=== PATIENT | female | born 1980 | race Caucasian/White ===

== ENCOUNTER 2018-04-08 14:31 | Emergency (ER) | payer OTHER ==
[2018-04-08 14:59] VITALS: BP 130/67
--- NOTE | 2018-04-08 15:45 | UC ---
Respiratory Complaint HPI - HPI Summary HPI Summary: Per mailroom clerk "c/o migraine and cough x 1.5 weeks. Right sided rib pain x 3 days from coughing so much." + asthma hx. ran out of alb. normally well controlled except for when she is sick. rt anterior low rib hurt. + wheezing. feels hot/cold. did not check temp. has had sinus pain but not today. has had to use prednsone for similar sx in past and had no problems. - History of Current Complaint Chief Complaint: UCRespiratory Stated Complaint: COLD SX'S, RT SIDED RIB PAIN Time Seen by Provider: 04/08/18 15:38 Hx Last Menstrual Period: perimenopausal Pain Intensity: 10 - Allergies/Home Medications Allergies/Adverse Reactions: Allergies Allergy/AdvReac Type Severity Reaction Status Date / Time morphine Allergy See Comment Verified 02/15/18 11:44 ibuprofen AdvReac See Comment Verified 02/15/18 11:44 PMH/Surg Hx/FS Hx/Imm Hx Previously Healthy: Yes - Surgical History Surgical History: Yes Surgery Procedure, Year, and Place: t/a as a child. x 2. GASTRIC BYPASS-"SLEEVE" DEC 2013. LT KNEE - ACL RECON. ABDOMINOPLASTY - Family History Known Family History: Positive: Hypertension, Other - negative FMH migraines - Social History Alcohol Use: None Substance Use Type: None Smoking Status (MU): Heavy Every Day Tobacco Smoker Type: Cigarettes Amount Used/How Often: 1/2 PPD Length of Time of Smoking/Using Tobacco: 8 YRS Have You Smoked in the Last Year: Yes When Did the Patient Quit Smoking/Using Tobacco: 2009 Household Exposure Type: Cigarettes Review of Systems Constitutional: Chills Skin: Negative Eyes: Negative ENT: Negative Respiratory: Cough Cardiovascular: Negative Gastrointestinal: Negative Genitourinary: Negative Motor: Negative Neurovascular: Negative Musculoskeletal: Negative Neurological: Negative Psychological: Negative Is Patient Immunocompromised?: No All Other Systems Reviewed And Are Negative: Yes Physical Exam Triage Information Reviewed: Yes Appearance: Ill-Appearing - mildly d/t cough. Vital Signs: Initial Vital Signs Temp 97.4 F 04/08/18 14:53 Pulse 68 04/08/18 14:53 Resp 18 04/08/18 14:53 BP 130/67 04/08/18 14:53 Pulse Ox 99 04/08/18 14:53 Vital Signs Reviewed: Yes Eye Exam: Normal ENT: Positive: Pharynx normal, Nasal congestion, TMs normal. Negative: Sinus tenderness Dental Exam: Normal Neck exam: Normal Neck: Positive: Supple, Nontender, No Lymphadenopathy Respiratory: Positive: No respiratory distress, No accessory muscle use, Wheezing - througout, Other: - tender over rt ribs anterior inframammary area. Negative: Crackles Cardiovascular Exam: Normal Cardiovascular: Positive: RRR, No Murmur, Pulses Normal Abdomen Description: Positive: Nontender, Soft Musculoskeletal Exam: Normal Neurological Exam: Normal Psychological Exam: Normal Skin Exam: Normal UC Diagnostic Evaluation - Laboratory O2 Sat by Pulse Oximetry: 99 Respiratory Course/Dx - Course Course Of Treatment: Rt rib xray & chest x 3 viwes - no pneumonia, no frx. reviewed w/ pt. alb neb given here x1. sx improved. lungs w/ better air movement and only minimal wheezing. - Differential Dx/Diagnosis Differential Diagnosis/HQI/PQRI: Asthma, Lower Resp Infection, Sinusitis, Other - rib frx Provider Diagnoses: asthmatic bronchitis, chest wall strain Discharge - Sign-Out/Discharge Documenting (check all that apply): Discharge/Admit/Transfer - Discharge Plan Condition: Stable Disposition: HOME Prescriptions: Albuterol HFA INHALER* [Ventolin HFA Inhaler*] 2 puff INH Q4H PRN 30 Days #1 mdi PRN Reason: Cough Amoxicillin/Clavulanate TAB* [Augmentin TAB 875*] 875 mg PO BID #20 tab methylPREDNISolone [Medrol Dosepak 4 MG*] 4 mg PO DAILY #1 rica Patient Education Materials: Asthma (ED), Acute Bronchitis (ED) Referrals: Lj Christianson PA [Primary Care Provider] - 5 Days Additional Instructions: -Make sure to take a probiotic daily while on antibiotics to help prevent a potential complication of antibiotic use called c diff. Some well known brands that can be found OTC are [employer], [facility] and [employer]. Make sure to complete the entire prescription unless advised otherwise by your health care provider -Use the albuterol inhaler every 4-6 hours as needed. You should follow up sooner if your symptoms increase or persist. -The xray did not show any pneumonia or rib fracture. - Billing Disposition and Condition Condition: STABLE Disposition: HOME
[2018-04-08] MEDS ORDERED: Albuterol 2.5 MG/3 ML NEB.SOL* (0.083%) INH ONE (15:52)
--- NOTE | 2018-04-08 17:08 | RAD ---
INDICATION: Cough rhonchi wheezing, anterior right rib pain. COMPARISON: Comparison is made with a prior chest x-ray study from January 02, 2011. TECHNIQUE: 3 views of the right ribs and dual-energy PA views of the chest were obtained. FINDINGS: No fracture or significant focal osseous abnormality is seen. The heart is within normal limits in size. The lungs are clear. There is no evidence for pneumothorax or pleural effusion. IMPRESSION: NO EVIDENCE FOR ACUTE FINDING.
== END 2018-04-08 17:25 | disposition home or self-care (01) ==
LOC: UCCORT 14:31
DX: J45.909 Unspecified asthma, uncomplicated (principal); S29.011A Strain of muscle and tendon of front wall of thorax, initial encounter; X58.XXXA Exposure to other specified factors, initial encounter; Y92.9 Unspecified place or not applicable; Z88.6 Allergy status to analgesic agent
CPT/HCPCS: 99212; G0463

== ENCOUNTER 2018-06-17 16:10 | Emergency (ER) | payer OTHER ==
[2018-06-17 16:39] VITALS: BP 100/67
--- NOTE | 2018-06-17 17:07 | UC ---
Headache HPI - HPI Summary HPI Summary: per director of marketing operations "Pt c/o migraines, nausea, vomitting/diarrhea, and vertigo x4 days. Takes topamax daily for migraines and tylenol prn-last taken 1100 today w / no pain relief. Deneis syncopal episode. States she still feels dizzy w/ eyes closed. Unable to keep fluids down d/t nausea-last emesis about an hour ago. " -here w. her boyfriend. -gets terrible migraines every few months that require toradol. requetss the same. she does get h/o vertigo w/ these sx. denies slurred speech, numbing, weakness, tingling. zofran helps. denies renal problems. - History Of Current Complaint Chief Complaint: UCHeadache Stated Complaint: HEADACHE, VOMITING Time Seen by Provider: 06/17/18 16:58 Hx Last Menstrual Period: DOES NOT GET; "PRE-MENOPAUSE" Pain Intensity: 10 - Allergies/Home Medications Allergies/Adverse Reactions: Allergies Allergy/AdvReac Type Severity Reaction Status Date / Time morphine Allergy See Comment Verified 06/17/18 16:29 ibuprofen AdvReac See Comment Verified 06/17/18 16:29 PMH/Surg Hx/FS Hx/Imm Hx Previously Healthy: Yes Neurological History: Migraine - Surgical History Surgical History: Yes Surgery Procedure, Year, and Place: t/a as a child. x 2. GASTRIC BYPASS-"SLEEVE" DEC 2013. LT KNEE - ACL RECON. ABDOMINOPLASTY - Family History Known Family History: Positive: Hypertension, Other - negative FMH migraines - Social History Alcohol Use: None Substance Use Type: None Smoking Status (MU): Heavy Every Day Tobacco Smoker Type: Cigarettes Amount Used/How Often: 1/2 PPD Length of Time of Smoking/Using Tobacco: 8 YRS Have You Smoked in the Last Year: Yes When Did the Patient Quit Smoking/Using Tobacco: 2009 Household Exposure Type: Cigarettes - Immunization History Most Recent Tetanus Shot: UTD Review of Systems Constitutional: Negative Skin: Negative Eyes: Negative ENT: Negative Respiratory: Negative Cardiovascular: Negative Gastrointestinal: Vomiting, Nausea Genitourinary: Negative Motor: Negative Neurovascular: Negative Musculoskeletal: Negative Neurological: Headache Psychological: Negative Is Patient Immunocompromised?: No All Other Systems Reviewed And Are Negative: Yes Physical Exam Triage Information Reviewed: Yes Appearance: Well-Appearing, Well-Nourished, Pain Distress - lying on exam tabkle in dark room. walked into with her head down trying not to turn her head, Vital Signs: Initial Vital Signs Temp 97.1 F 06/17/18 16:30 Pulse 56 06/17/18 16:30 Resp 14 06/17/18 16:30 BP 100/67 06/17/18 16:30 Pulse Ox 100 06/17/18 16:30 Vital Signs Reviewed: Yes Eye Exam: Normal - no nystagmus ENT Exam: Normal ENT: Positive: Pharynx normal, TMs normal Neck exam: Normal Neck: Positive: Supple Respiratory Exam: Normal Respiratory: Positive: Lungs clear, Normal breath sounds, No respiratory distress, No accessory muscle use Cardiovascular: Positive: RRR, No Murmur Abdomen Description: Positive: Nontender, Soft Bowel Sounds: Positive: Present Musculoskeletal Exam: Normal Neurological Exam: Normal Psychological Exam: Normal Skin Exam: Normal Headache Course/Dx - Course Course Of Treatment: toradol 30mgs IM w/ zofran 4mgs given here. -fluids, rest , dark room. -they are very happy with this plan - Differential Dx/Diagnosis Differential Diagnosis/HQI/PQRI: Migraine, Tension Headache Provider Diagnoses: migraine, vertigo, nausea Discharge - Sign-Out/Discharge Documenting (check all that apply): Patient Departure - Discharge Plan Condition: Stable Disposition: HOME Prescriptions: Ondansetron ODT TAB* [Zofran 4 MG Odt TAB*] 4 mg PO Q8H PRN 3 Days #9 tab.odt PRN Reason: Nausea Patient Education Materials: Migraine Headache (ED) Referrals: Lj Christianson PA [Primary Care Provider] - 4 Days Additional Instructions: We have given you a shot of toradol and a zofran tablet here. Rest, dark room and gentle diet. Follow up with your provider next week. - Billing Disposition and Condition Condition: STABLE Disposition: Home
[2018-06-17] MEDS ORDERED: Ketorolac INJ* 30 MG/ML 1 ML VIAL IM ONE (17:11)
[2018-06-17] MEDS ORDERED: Ondansetron ODT TAB* 4 MG PO ONE (17:11)
== END 2018-06-17 17:46 | disposition home or self-care (01) ==
LOC: UCCORT 16:10
DX: G43.909 Migraine, unspecified, not intractable, without status migrainosus (principal); R42 Dizziness and giddiness; R11.0 Nausea; Z88.4 Allergy status to anesthetic agent; Z88.6 Allergy status to analgesic agent; Z87.891 Personal history of nicotine dependence
CPT/HCPCS: 96372; 99212; A9270-GY; G0463; J1885

== ENCOUNTER 2019-03-04 08:17 | Emergency (ER) | payer MEDICARE, MEDICAID ==
[2019-03-04 08:36] VITALS: BP 111/59
[2019-03-04] MEDS ORDERED: Ondansetron ODT TAB* 4 MG PO ONE (08:47)
[2019-03-04] MEDS ORDERED: Ketorolac INJ* 30 MG/ML 1 ML VIAL IM ONE ×2 (08:48→09:53)
--- NOTE | 2019-03-04 08:54 | UC ---
Headache HPI - HPI Summary HPI Summary: Patient woke up with migraine at 3 am. she was unable to keep down topamax and tylenol this morning. has been vomiting and is photophobic. these are normally occuring when she has migraines. - History Of Current Complaint Chief Complaint: UCHvividaarchie Stated Complaint: MIGRAINE HEADACHE Time Seen by Provider: 03/04/19 08:33 Hx Obtained From: Patient Hx Last Menstrual Period: DOES NOT GET; "PRE-MENOPAUSE" ?: No Onset/Duration: Sudden Onset, Lasting Hours Onset Of Symptoms: Worse Since(Note Comment) - 3 am, Initially Headache Was: Moderate Currently Pain Is: Severe Pain Intensity: 9 Location of Headache: Temporal Aggravating Factor(s): Exertion, Bright Lights Associated Signs And Symptoms: Positive: Nausea - Allergies/Home Medications Allergies/Adverse Reactions: Allergies Allergy/AdvReac Type Severity Reaction Status Date / Time morphine Allergy See Comment Verified 03/04/19 08:36 ibuprofen AdvReac See Comment Verified 03/04/19 08:36 PMH/Surg Hx/FS Hx/Imm Hx Previously Healthy: No - migraines, depression, obesity - Surgical History Surgical History: Yes Surgery Procedure, Year, and Place: t/a as a child. x 2. GASTRIC BYPASS-"SLEEVE" DEC 2013. LT KNEE - ACL RECON. ABDOMINOPLASTY - Family History Known Family History: Positive: Hypertension, Other - negative FMH migraines - Social History Alcohol Use: None Substance Use Type: None Smoking Status (MU): Heavy Every Day Tobacco Smoker Type: Cigarettes Amount Used/How Often: 1/2 PPD Length of Time of Smoking/Using Tobacco: 8 YRS Have You Smoked in the Last Year: Yes When Did the Patient Quit Smoking/Using Tobacco: 2009 Household Exposure Type: Cigarettes - Immunization History Most Recent Tetanus Shot: UTD Review of Systems All Other Systems Reviewed And Are Negative: Yes Constitutional: Positive: Fatigue Gastrointestinal: Positive: Vomiting Neurological: Positive: Headache Is Patient Immunocompromised?: No Physical Exam Triage Information Reviewed: Yes Appearance: Ill-Appearing, Pain Distress, Obese Vital Signs: Initial Vital Signs Temp 97.6 F 03/04/19 08:28 Pulse 62 03/04/19 08:28 Resp 18 03/04/19 08:28 BP 111/59 03/04/19 08:28 Pulse Ox 100 03/04/19 08:28 Vital Signs Reviewed: Yes Eye Exam: Normal ENT Exam: Normal Dental Exam: Normal Neck exam: Normal Respiratory Exam: Normal Respiratory: Positive: Chest non-tender, Lungs clear, Normal breath sounds Cardiovascular Exam: Normal Cardiovascular: Positive: RRR, No Murmur, Pulses Normal Abdominal Exam: Normal Abdomen Description: Positive: Nontender, No Organomegaly, Soft Bowel Sounds: Positive: Present Musculoskeletal Exam: Normal Neurological Exam: Normal Neurological: Positive: Alert, Muscle Tone Normal Psychological Exam: Normal Skin Exam: Normal Re-Evaluation - Re-Evaluation First Eval Re-Evaluation Time: 10:00 Change: Unchanged - nausea has improved, still has headache, will administer shot of imitrex Second Eval Change: Unchanged - patient nausea has improved, dizzyness and headache persist. IV fluids and more toradol to be administered. Third Eval Change: Improved - patient resting comfortably, will be discharged after the fluids finish Headache Course/Dx - Course Course Of Treatment: hx obtained, exam performed, meds reviewed, toradol and zofran, imitrex and IV fluids given with good results. - Differential Dx/Diagnosis Differential Diagnosis/HQI/PQRI: Migraine, Tension Headache Provider Diagnosis: Migraine, Nausea & vomiting Discharge - Sign-Out/Discharge Documenting (check all that apply): Patient Departure All imaging exams completed and their final reports reviewed: No Studies - Discharge Plan Condition: Stable Disposition: HOME Patient Education Materials: Migraine Headache (ED) Referrals: Lj Christianson PA [Primary Care Provider] - Additional Instructions: 1. rest and continue to intake clear fluids 2. use the zofran, i did order a refill for you 3. Follow up with your PCP if the migraines persist - Billing Disposition and Condition Condition: STABLE Disposition: Home
[2019-03-04] MEDS ORDERED: SUMAtriptan SQ* 6 MG/0.5 ML VIAL SUBCUT ONE (09:27)
[2019-03-04] MEDS ORDERED: Ketorolac INJ* 30 MG/ML 1 ML VIAL IV PUSH ONE (09:55)
[2019-03-04] MEDS ORDERED: NS 0.9% 1000 ML** 1,000 ML IV ONE (09:55)
== END 2019-03-04 11:18 | disposition home or self-care (01) ==
LOC: UCCORT 08:17
DX: G43.909 Migraine, unspecified, not intractable, without status migrainosus (principal); R11.2 Nausea with vomiting, unspecified; H53.143 Visual discomfort, bilateral; F32.9 Major depressive disorder, single episode, unspecified; E66.9 Obesity, unspecified; F17.210 Nicotine dependence, cigarettes, uncomplicated; Z88.5 Allergy status to narcotic agent; Z88.8 Allergy status to other drugs, medicaments and biological substances
CPT/HCPCS: 96361; 96372; 96374; 99212; A9270-GY; G0463; J1885; J3030

== ENCOUNTER 2019-05-18 15:59 | Emergency (ER) | payer MEDICARE, MEDICAID ==
[2019-05-18 16:45] VITALS: BP 115/61
--- NOTE | 2019-05-18 17:27 | UC ---
Skin Complaint HPI - HPI Summary HPI Summary: 38-year-old woman comes in with a chief complaint of redness in the right lower leg. Patient had a tattoo placed there on May 06, 2019. In the last 1-2 days he started to become red and irritated warm to touch. She does also have puppies at home that jump on her legs and she is wondering appointment scratched. No fevers or chills feels well otherwise. She has been putting bacitracin on it but it continues to get worse. - History of Current Complaint Chief Complaint: UCSkin Time Seen by Provider: 05/18/19 17:22 Stated Complaint: RIGHT LEG SKIN ISSUE Hx Last Menstrual Period: DOES NOT GET; "PRE-MENOPAUSE" Pain Intensity: 6 - Allergy/Home Medications Allergies/Adverse Reactions: Allergies Allergy/AdvReac Type Severity Reaction Status Date / Time morphine Allergy See Comment Verified 05/18/19 16:35 ibuprofen AdvReac See Comment Verified 05/18/19 16:35 Home Medications: Home Medications Multivitamin [Multivitamins] 1 each PO DAILY 05/18/19 [History Confirmed ] traMADol TAB* [Ultram*] 50 mg PO Q6HR PRN 05/18/19 [History Confirmed 05/18/19] PMH/Surg Hx/FS Hx/Imm Hx Previously Healthy: Yes - Surgical History Surgical History: Yes Surgery Procedure, Year, and Place: t/a as a child. x 2. GASTRIC BYPASS-"SLEEVE" DEC 2013. LT KNEE - ACL RECON. ABDOMINOPLASTY - Family History Known Family History: Positive: Hypertension, Other - negative FMH migraines - Social History Alcohol Use: None Substance Use Type: None Smoking Status (MU): Heavy Every Day Tobacco Smoker Type: Cigarettes Amount Used/How Often: 1/2 PPD Length of Time of Smoking/Using Tobacco: 8 YRS Have You Smoked in the Last Year: Yes When Did the Patient Quit Smoking/Using Tobacco: 2009 Household Exposure Type: Cigarettes - Immunization History Most Recent Tetanus Shot: UNSURE Review of Systems All Other Systems Reviewed And Are Negative: Yes Constitutional: Positive: Negative Skin: Positive: Other - SEE HPI ENT: Positive: Negative Respiratory: Positive: Negative Cardiovascular: Positive: Negative Gastrointestinal: Positive: Negative Motor: Positive: Negative Neurovascular: Positive: Negative Musculoskeletal: Positive: Negative Neurological: Positive: Negative Psychological: Positive: Negative Is Patient Immunocompromised?: No Physical Exam Triage Information Reviewed: Yes Appearance: Well-Appearing, No Pain Distress, Well-Nourished Vital Signs: Initial Vital Signs Temp 97.8 F 05/18/19 16:37 Pulse 58 05/18/19 16:37 Resp 18 05/18/19 16:37 BP 115/61 05/18/19 16:37 Pulse Ox 100 05/18/19 16:37 Vital Signs Reviewed: Yes Eye Exam: Normal Eyes: Positive: Conjunctiva Clear Neck: Positive: Supple Respiratory: Positive: No respiratory distress Musculoskeletal: Positive: Strength Intact, ROM Intact Neurological: Positive: Alert, Muscle Tone Normal Psychological: Positive: Age Appropriate Behavior Skin: Positive: Other - Right lower leg there is a 5 cm x 8 cm area of erythema over a tattoo. There is no drainage there is no streaking. Course/Dx - Diagnoses Provider Diagnosis: Cellulitis of right leg Discharge - Sign-Out/Discharge Documenting (check all that apply): Patient Departure All imaging exams completed and their final reports reviewed: No Studies - Discharge Plan Condition: Stable Disposition: HOME Prescriptions: DOXYcycline CAP(*) [DOXYcycline 100MG CAP(*)] 100 mg PO BID #20 cap Mupirocin 1 applic TOPICAL BID #22 gm Patient Education Materials: Cellulitis (ED) Referrals: Lj Christianson PA [Primary Care Provider] - Additional Instructions: FOLLOW UP WITH YOUR DOCTOR IF NOT COMPLETELY IMPROVED. GO TO THE EMERGENCY DEPARTMENT IF WORSE; SPREAD OF INFECTION, FEVER, YOU FEEL ILL OR ANY QUESTIONS OR CONCERNS. - Billing Disposition and Condition Condition: STABLE Disposition: Home
== END 2019-05-18 17:36 | disposition home or self-care (01) ==
LOC: UCCORT 15:59
DX: L03.115 Cellulitis of right lower limb (principal); F17.210 Nicotine dependence, cigarettes, uncomplicated
CPT/HCPCS: 99212; G0463

== ENCOUNTER 2019-05-22 13:06 | Emergency (ER) | payer MEDICARE, MEDICAID ==
[2019-05-22 13:32] VITALS: BP 117/68
--- NOTE | 2019-05-22 13:50 | UC ---
Palpitation/Dysrhythmia HP - HPI Summary HPI Summary: 38-year-old woman comes in with chief complaint of palpitations. She's feeling her heartbeat skip. Occurs about every 10 minutes. No chest pain no shortness of breath does not feel like she passed out. Patient denies any prior history of palpitations. No known history of thyroid problems. Patient did start doxycycline 3 days ago it's only only new medication. The doxycycline was for cellulitis in the right lower leg. The cellulitis is at a new tattoo site. Cellulitis is improved some but has not gone. - History of Current Complaint Chief Complaint: UCGeneralIllness Stated Complaint: HEART SKIPPING A BEAT Time Seen by Provider: 05/22/19 13:46 Hx Last Menstrual Period: "Premenopause at the age of 20" Pain Intensity: 0 - Allergy/Home Medications Allergies/Adverse Reactions: Allergies Allergy/AdvReac Type Severity Reaction Status Date / Time morphine Allergy See Comment Verified 05/22/19 13:28 ibuprofen AdvReac See Comment Verified 05/22/19 13:28 PMH/Surg Hx/FS Hx/Imm Hx Previously Healthy: Yes - Surgical History Surgical History: Yes Surgery Procedure, Year, and Place: t/a as a child. x 2. GASTRIC BYPASS-"SLEEVE" DEC 2013. LT KNEE - ACL RECON. ABDOMINOPLASTY - Family History Known Family History: Positive: Hypertension, Other - negative FMH migraines - Social History Alcohol Use: None Substance Use Type: None Smoking Status (MU): Heavy Every Day Tobacco Smoker Type: Cigarettes Amount Used/How Often: 1/2 PPD Length of Time of Smoking/Using Tobacco: On and Off Since "young" Have You Smoked in the Last Year: Yes When Did the Patient Quit Smoking/Using Tobacco: 2009 Household Exposure Type: Cigarettes - Immunization History Most Recent Tetanus Shot: UNSURE Review of Systems All Other Systems Reviewed And Are Negative: Yes Constitutional: Positive: Negative Skin: Positive: Other - SEE HPI Eyes: Positive: Negative ENT: Positive: Negative Respiratory: Positive: Negative Cardiovascular: Positive: Palpitations Gastrointestinal: Positive: Negative Motor: Positive: Negative Neurovascular: Positive: Negative Musculoskeletal: Positive: Negative Neurological: Positive: Negative Psychological: Positive: Negative Is Patient Immunocompromised?: No Physical Exam Triage Information Reviewed: Yes Appearance: Well-Appearing, No Pain Distress, Well-Nourished Vital Signs: Initial Vital Signs Temp 98.4 F 05/22/19 13:26 Pulse 62 05/22/19 13:26 Resp 18 05/22/19 13:26 BP 117/68 05/22/19 13:26 Pulse Ox 100 05/22/19 13:26 Vital Signs Reviewed: Yes Eye Exam: Normal Eyes: Positive: Conjunctiva Clear Neck: Positive: Supple Respiratory: Positive: Lungs clear, Normal breath sounds, No respiratory distress Cardiovascular: Positive: RRR Musculoskeletal Exam: Normal Musculoskeletal: Positive: Strength Intact, ROM Intact Neurological Exam: Normal Neurological: Positive: Alert, Muscle Tone Normal Psychological Exam: Normal Psychological: Positive: Normal Response To Family, Age Appropriate Behavior Skin: Positive: Other - The right lower leg on the anterior branch patient has a tattoo with an area of erythema and it's of 3 cm x 3 cm. No drainage. Diagnostics - EKG Cardiac Rate: NL - at 1338 Cardiac Rhythm: Sinus: Normal - 60bpm ST Segment: Normal Palpitations Course/Dx - Course Course Of Treatment: I discussed the EKG with the patient and her partner. Patient's describing a symptomatic palpitations. I recommended further evaluation emergency Department. Because of doxycycline is new compared to have her stop the doxycycline and switch her over to clindamycin. - Differential Dx/Diagnosis Provider Diagnosis: Palpitations, Cellulitis of right leg Discharge - Sign-Out/Discharge Documenting (check all that apply): Patient Departure All imaging exams completed and their final reports reviewed: No Studies - Discharge Plan Condition: Stable Disposition: HOME-RECOMMEND TO ED Prescriptions: Clindamycin Cap(NF) [Clindamycin Cap 300 mg Cap(NF)] 300 mg PO Q6H #40 cap Patient Education Materials: Heart Palpitations (ED), Cellulitis (ED) Referrals: Lj Christianson PA [Primary Care Provider] - Additional Instructions: GO DIRECTLY TO THE EMERGENCY DEPARTMENT FOR FURTHER EVALUATION OF YOUR PALPITATIONS. STOP THE DOXYCYCLINE AND START THE CLINDAMYCIN. - Billing Disposition and Condition Condition: STABLE Disposition: Home-Recommend to ED
== END 2019-05-22 14:12 | disposition home health service (06) ==
LOC: UCCORT 13:06
DX: R00.2 Palpitations (principal); L03.115 Cellulitis of right lower limb; F17.210 Nicotine dependence, cigarettes, uncomplicated
CPT/HCPCS: 93005; 99212; G0463